=== PATIENT | female | born 1990 | race Caucasian/White ===

== ENCOUNTER 2019-02-06 22:14 | Emergency (ER) | payer OTHER ==
[~2019-02-06] VITALS: Ht 180.3 cm; Wt 100.8 kg
[2019-02-06 22:23] VITALS: BP 132/88; PULSE 70; RESP 18; Ht 180.3 cm; Wt 100.8 kg
[2019-02-06] MEDS ORDERED: DIPHTH/TET/ACEL PERTUSS (ADULT) 0.5 ML VIAL IM* ONE (23:30)
[2019-02-07] MEDS ORDERED: BACITUD TOP (00:29)
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
== END 2019-02-07 01:11 | disposition home or self-care (01) ==
LOC: FTE 22:14
DX: S01.81XA Laceration without foreign body of other part of head, initial encounter (principal); W50.0XXA Accidental hit or strike by another person, initial encounter; Y92.9 Unspecified place or not applicable; Z23 Encounter for immunization
CPT/HCPCS: 81025; 90471; 90715; Z7502